=== PATIENT | male | born 1945 | race African-American/Black ===

== ENCOUNTER 2018-09-18 17:15 | Emergency (ER) | payer MEDICARE ==
[~2018-09-18] VITALS: Ht 170.2 cm; Wt 70.0 kg
[2018-09-18 18:41] LABS: BASOPHILS % 0.9 % (0.0-2.0); EOSINOPHILS % 4.3 % (0.0-5.0); HEMATOCRIT. 32.1 % (42.0-52.0); HEMOGLOBIN. 10.8 g/dL (14.0-18.0); LYMPHOCYTES % 27.9 % (20.0-50.0); MEAN CORPUSCULAR HEMOGLOBIN 31.5 pg (28.0-32.0); MEAN CORPUSCULAR VOLUME 93.9 fL (80.0-94.0); MEAN PLATELET VOLUME 7.6 fl (7.4-10.4); MONOCYTES % 11.3 % (2.0-8.0); NEUTROPHILS % 55.6 % (40.0-76.0); PLATELET 172 x1000/uL (130-400); RED BLOOD CELL COUNT 3.42 mill/uL (4.7-6.1); RED CELL DISTRIBUTION WIDTH 14.8 % (11.6-14.6)
[2018-09-18 18:46] LABS: CHLORIDE 112 mEq/L (98-107)
[2018-09-18 18:49] LABS: INR 1.1; PARTIAL THROMBOPLASTIN TIME 25.9 sec (23.4-31.0); PROTHROMBIN TIME 11.2 sec (9.6-11.0)
[2018-09-18 18:50] LABS: ETHANOL BLOOD < 10 mg/dL
[2018-09-18 19:07] VITALS: BP 126/78
[2018-09-18] MEDS: SODIUM CHLORIDE 0.9% 1,000 ML IV ONE (19:07)
[2018-09-18] MEDS: KETOROLAC 30MG/ML VIAL IV STA (19:07)
== END 2018-09-18 19:11 | disposition left against medical advice (07) ==
LOC: ER 17:15
DX: R41.82 Altered mental status, unspecified (principal); F12.10 Cannabis abuse, uncomplicated; R47.81 Slurred speech; I10 Essential (primary) hypertension; Z86.73 Personal history of transient ischemic attack (TIA), and cerebral infarction without residual deficits; Z98.890 Other specified postprocedural states; V49.49XA Driver injured in collision with other motor vehicles in traffic accident, initial encounter; Y93.89 Activity, other specified; Y92.89 Other specified places as the place of occurrence of the external cause; Y99.8 Other external cause status
CPT/HCPCS: 36415; 71045; 80053; 80320; 82962; 83880; 84484; 85025; 85610; 85730; 93005; 99284; J1885; J7030; G0480